=== PATIENT | female | born 1945 | race Caucasian/White ===

== ENCOUNTER 2017-09-12 23:14 | Emergency (ER) | payer MEDICARE, OTHER ==
[~2017-09-12] VITALS: Ht 157.5 cm; Wt 54.7 kg
[~2017-09-12 23:14] MED LIST: CLINDAMYCIN HC150 MG PO; FLAGYL500 MG PO; K DUR10 MEQ PO; LOSARTAN POTASS25 MG PO; PROMETHAZINE HC25 M1 PO; SULFAMETHOXAZO1 EAC1 PO
== END 2017-09-12 23:39 | disposition home or self-care (01) ==
LOC: FSED 23:14
DX: E11.649 Type 2 diabetes mellitus with hypoglycemia without coma (principal); I50.9 Heart failure, unspecified
CPT/HCPCS: 99282